=== PATIENT | male | born 1990 | race Caucasian/White ===

== ENCOUNTER 2018-06-08 17:14 | Emergency (ER) | payer BC, OTHER ==
[~2018-06-08] VITALS: Ht 175.3 cm; Wt 88.5 kg
[2018-06-08 17:22] VITALS: BP 129/78
[2018-06-08 17:57] LABS: BASOPHILS # (AUTO) 0.03 x10^3/uL (0-0.1); BASOPHILS % (AUTO) 0 % (0-1); EOSINOPHILS # (AUTO) 0.02 x10^3/uL (0-0.4); EOSINOPHILS % (AUTO) 0 % (1-7); LYMPHOCYTES # (AUTO) 1.59 x10^3/uL (1-3.4); LYMPHOCYTES % (AUTO) 17 % (22-44); MD NO; MEAN CORPUSCULAR HEMOGLOBIN 33.1 pg (27.5-34.5); MEAN CORPUSCULAR HGB CONC 35.1 g/dL (33.2-36.2); MEAN CORPUSCULAR VOLUME 94.4 fL (81-97); MEAN PLATELET VOLUME 8.1 fL (7.4-10.4); MONOCYTES # (AUTO) 0.76 x10^3/uL (0.2-0.8); MONOCYTES % (AUTO) 8 % (2-9); NEUTROPHILS # (AUTO) 7.02 x10^3/uL (1.8-6.8); NEUTROPHILS % (AUTO) 75 % (42-75); PLATELET COUNT 285 x10^3/uL (130-400); RED BLOOD COUNT 4.64 x10^6/uL (4.38-5.82); RED CELL DISTRIBUTION WIDTH 12.6 % (9.4-14.8)
[2018-06-08 18:09] LABS: ALANINE AMINOTRANSFERASE 27 U/L (12-78); ALBUMIN 3.8 g/dL (3.4-5.0); ANION GAP 6 mmol/L (5-15); CALCIUM 8.9 mg/dL (8.5-10.1); CHLORIDE 107 mmol/L (98-107); CREATININE 0.93 mg/dL (0.7-1.3)
[2018-06-08 18:11] LABS: ALKALINE PHOSPHATASE 55 U/L (45-117); BILIRUBIN,TOTAL 0.5 mg/dL (0.2-1.0); TOTAL PROTEIN 7.5 g/dL (6.4-8.2)
== END 2018-06-08 19:43 | disposition home or self-care (01) ==
LOC: ED 19:29
DX: L03.311 Cellulitis of abdominal wall (principal)
CPT/HCPCS: 36415; 80053; 83690; 85025; 99284

== ENCOUNTER 2020-12-18 11:00 | Emergency (ER) | payer BC, OTHER ==
[~2020-12-18] VITALS: Ht 177.8 cm; Wt 92.9 kg
--- NOTE | 2020-12-18 11:53 | NUR ---
PIV STARTED, LABS DRAWN.
[2020-12-18] MEDS ORDERED: MORPHINE SULFATE 4 MG/ML, 1ML IVPush ONE (12:00)
[2020-12-18] MEDS ORDERED: MORPHINE SULFATE 4 MG/ML, 1ML ONE ×2 (12:11→13:41)
--- NOTE | 2020-12-18 12:15 | NUR ---
PT MEDICATED PER EMAR. PT RESTING ON GURNEY W/ CALL LIGHT IN REACH AND SIDE RAILS UPX2. RESP EVEN AND UNLABORED, NADN. AWAITING CT.
[2020-12-18 12:16] LABS: BASOPHILS % (AUTO) 0 % (0-1); EOSINOPHILS % (AUTO) 0 % (1-7); LYMPHOCYTES % (AUTO) 11 % (22-44); MEAN CORPUSCULAR HEMOGLOBIN 32.6 pg (27.5-34.5); MEAN CORPUSCULAR HGB CONC 34.6 g/dL (33.2-36.2); MEAN PLATELET VOLUME 8.2 fL (7.4-10.4); MONOCYTES % (AUTO) 12 % (2-9); NEUTROPHILS % (AUTO) 76 % (42-75); PLATELET COUNT 233 x10^3/uL (130-400); RED BLOOD COUNT 4.66 x10^6/uL (4.38-5.82); RED CELL DISTRIBUTION WIDTH 12.9 % (9.4-14.8)
[2020-12-18 12:18] LABS: MD NO
[2020-12-18 12:28] LABS: ANION GAP 5 mmol/L (5-15); CALCIUM 9.1 mg/dL (8.5-10.1); CHLORIDE 106 mmol/L (98-107)
--- NOTE | 2020-12-18 12:34 | NUR ---
PT TO CT AT THIS TIME.
[2020-12-18] MEDS ORDERED: OMNIPAQUE 350 MG/ML, 100ML BOTTLE ONE (12:53)
[2020-12-18] MEDS ORDERED: LIDOCAINE-MPF 1%, 5ML ONE (13:28)
[2020-12-18] MEDS ORDERED: morphine SULFATE 10 MG/ML, 1ML IVPush ONE (13:30)
[2020-12-18] MEDS ORDERED: DEXAMETHASONE 4 MG/ML, 1ML IVPush ONE (13:30)
[2020-12-18] MEDS ORDERED: AMPICILLIN/SULBACTAM 3 GM in SODIUM CHLORIDE 0.9% 100 ML IV ONE (13:30)
[2020-12-18] MEDS ORDERED: LIDOCAINE 1%-EPI 1:100K, 20ML INFIL ONE (13:30)
[2020-12-18] MEDS ORDERED: DEXAMETHASONE 4 MG/ML, 5ML ONE (13:40)
[2020-12-18 15:23] VITALS: BP 132/74
== END 2020-12-18 15:25 | disposition home or self-care (01) ==
LOC: ED 13:42
DX: J36 Peritonsillar abscess (principal); F17.210 Nicotine dependence, cigarettes, uncomplicated
CPT/HCPCS: 36415; 42700; 70491; 80048; 85025; 96365; 96375; 96376; 99285; J0295; J1100; J2270; Q9967